=== PATIENT | male | born 1965 | race Caucasian/White ===

== ENCOUNTER 2024-08-03 06:17 | Day surgery (SDC) | payer BC, SELFPAY | END 2024-08-03 09:23 | disposition home or self-care (01) | LOC: GI 06:17 | PROVIDERS: ATTENDING PHYSICIAN Internal Medicine | DX: Z12.11 Encounter for screening for malignant neoplasm of colon (principal); K57.30 Diverticulosis of large intestine without perforation or abscess without bleeding; K64.8 Other hemorrhoids; Z83.719 Family history of colon polyps, unspecified | CPT/HCPCS: G0105 ==

== ENCOUNTER → 2024-08-09 17:04 | Outpatient (REF) | payer BC, SELFPAY | LOC: RAD 17:04 | PROVIDERS: ATTENDING PHYSICIAN Internal Medicine; FAMILY PHYSICIAN Family Medicine | DX: R93.3 Abnormal findings on diagnostic imaging of other parts of digestive tract (principal); D37.3 Neoplasm of uncertain behavior of appendix | CPT/HCPCS: 74177; Q9967 ==

== ENCOUNTER 2024-09-02 06:23 | Day surgery (SDC) | payer BC, SELFPAY ==
[2024-08-26 11:25] LABS: Hematocrit 43.4 % (39.0-52.0); Hemoglobin 14.5 g/dL (13.0-18.0); Mean Corp Hgb Conc. 33.4 g/dL (33.0-37.0); Mean Corpuscular Volume 89.9 fL (80.0-94.0); Platelet Count 232 10^3/uL (130-400); Red Blood Cell Count 4.83 10^6/uL (4.70-6.10); Red Cell Dist. Width 15.4 % (11.5-14.5); White Blood Cell Count 6.5 10^3/uL (4.8-10.8)
[2024-08-26 11:32] LABS: INR 0.98; PT 13.5 Sec (11.4-14.6)
[2024-08-26 11:33] LABS: APTT 31.9 Sec (23.4-35.0)
[2024-08-26 12:08] LABS: ALT (SGPT) 40 U/L (0-50); AST (SGOT) 35 U/L (17-59); Albumin 4.4 g/dl (3.5-5.0); Alkaline Phosphatase 58 U/L (38-126); Blood Urea Nitrogen 14 mg/dl (9-20); Calcium 9.7 mg/dl (8.4-10.2); Carbon Dioxide 28 mmol/L (22-30); Chloride 102 mmol/L (98-107); Glucose 91 mg/dl (70-99); Potassium 4.8 mmol/L (3.5-5.1); Sodium 140 mmol/L (135-145); Total Bilirubin 0.7 mg/dl (0.2-1.3); Total Protein 7.4 g/dl (6.3-8.2); eGFR > 60.00
[2024-08-26 13:40] VITALS: BMI 24.4
[2024-09-02] VITALS (9 sets, daily range): BP systolic 110–178; BP diastolic 60–101; BMI 24.4
[2024-09-02] MEDS: NORMOSOL-R/PLASMALYTE-A 1000 IV (08:45)
[2024-09-02] MEDS: LYRICA 150 MG PO (09:04)
[2024-09-02] MEDS: ENTEREG 12 MG PO (09:04)
[2024-09-02] MEDS: CELEBREX 200 MG PO (09:04)
[2024-09-02] MEDS: HEPARIN 5000 UNITS SC (09:05)
[2024-09-02] MEDS: TYLENOL 1000 MG PO (09:07)
--- NOTE | 2024-09-02 11:52 | W.IMMPOSTOP ---
Addendum entered and electronically signed by Cayden Zee MD 09/02/24 12:23:
updated fiance
Original Note:
Surgical Immed Post Op Note
-
Primary Surgeon: Cayden Zee MD
Assisting Surgeon: JAMES Hammond
Pre-op Diagnosis: Appendiceal mass
Post-op Diagnosis: Appendiceal mass
Procedure Performed: Robotic appendectomy with partial cecectomy, laparoscopic TAP block
Anesthesia Type: General
Specimen / Cultures: Appendix with partial cecum
Estimated Blood Loss: 15 mL
IVF: 1.0 L
UOP: 200 mL
Complications: None
Operative Findings: Appendix and retrocecal position and had to mobilize the cecum up to the mid ascending colon; thickening at the proximal appendix noted but no obvious mass or inflammation; divided appendix at the base with a loop of cecum, clear
from the terminal ileum
--- NOTE | 2024-09-02 11:54 | OR.RPT ---
Operative Report
Operative Report
DATE OF OPERATION: 09/02/2024
SURGEON: Cayden Zee MD
PREOPERATIVE DIAGNOSIS: Appendiceal mass
POSTOPERATIVE DIAGNOSIS: Appendiceal mass
OPERATION: Robotic appendectomy with partial cecectomy, adhesiolysis greater than 10 minutes, laparoscopic TAP block
ASSISTANTS:
1. JAMES Amos
ANESTHESIA: General
ESTIMATED BLOOD LOSS: 15 mL
IVF: 1.0 L
URINE OUTPUT: 200 mL
FINDINGS:
1. Appendix in retrocecal position, mobilized cecum up to mid ascending colon
2. Thickening of the appendix noted in the proximal appendix, but did not appear to involve the base; no obvious mass or inflammation
SPECIMENS:
1. Appendix with partial cecum
DRAINS: None
COMPLICATIONS: No immediate complications.
INDICATIONS: The patient is a 58-year-old male who presented to my office after a screening colonoscopy demonstrated a protrusion at the appendiceal orifice as well as mucin emanating from it, concerning for a mucinous mass. A subsequent CTAP
showed thickening of the appendix at the midportion of the appendix up to 9 mm. Therefore, I recommended appendectomy for pathologic review and diagnosis. The operation was discussed with the patient in detail, including the risks, benefits and
alternatives. Risks described included, but not limited to, bleeding, infection, damage to nearby structures (i.e., bowel, bladder, epigastric vessels), need for small bowel resection, pathologically normal appendix, positive margins, need for
subsequent surgery, conversion to open, and anesthetic risks. The patient understood and agreed to proceed. The consent was signed and placed in the chart.
PROCEDURE IN DETAIL: The patient was taken to the operating room and placed on the operating table in supine position. Sequential compression devices were placed bilaterally. General anesthesia was induced and the patient was intubated without
complication. Bilateral arms were tucked. St catheter was placed with sterile technique. Preoperative antibiotics were given. The abdomen was shaved, prepped and draped in a sterile fashion. A marking pen was used to mary out the midline. A
time-out was performed verifying the correct patient, procedure, operative site, positioning, and special equipment.
At Elmer's point, using an 11 blade scalpel, an 8 mm incision was made. A Veress needle was used to obtain abdominal access. After 3 clicks, insufflation was initiated and the opening pressure was noted to be less than 8 mmHg. The abdomen was
insufflated to a pressure of 12, which the patient tolerated well. The 8 mm robotic trocar was introduced and the robotic endoscope advanced. No injury from initial Veress placement or port placement was noted. The abdomen was explored. There
were no concerning peritoneal lesions or superficial lesions on the liver.
In a diagonal fashion from the planned suprapubic port site (along the midline, 2 finger breadths above the pubic symphysis) to the Fallon's point incision, three more robotic trocars were placed under direct visualization, taking care to avoid
injury to the epigastric vessels and bladder. Using atraumatic graspers, the omentum was brushed cephalad. The patient was placed in [id number] with slight Trendelenburg. The robot was docked from the patient's right side. From the
suprapubic to Fallon's point, the instruments introduced were the bipolar grasper, camera, scissors and tip-up grasper.
To begin, I grasped and elevated the cecum. However, this was hindered due to the RLQ adhesions. Therefore, I performed adhesiolysis to free up the cecum and terminal ileum. I swept the small bowel away from the right lower quadrant. The
appendix was in a retrocecal position. I mobilized the cecum and terminal ileum from a lateral to medial approach, taking care to avoid injury to retroperitoneal structures. I carried this mobilization up to the mid ascending colon until I
visualized the tip of the appendix. I meticulously freed the appendix from its attachments to the inferior aspect of the ascending colon. I easily identified the cecum, appendix and terminal ileum. I lysed adhesions between the appendix and the
ligament of Treitz. While retracting the appendix superiorly, I divided the mesoappendix with the vessel sealer to the base of the appendix. The area was now free from adhesions and well exposed. Using the tip up grasper, I estimated my planned
staple line, and there was a clear margin of cecum without involvement of the terminal ileum. The left upper quadrant port was upsized to a 12 mm port. I stapled and divided the appendix with a several millimeter margin of cecum. The specimen was
placed in an endoscopic retrieval bag and removed from the suprapubic incision.
The right lower quadrant was suctioned. There was no bleeding noted from the staple line or from the divided mesentery. The robot was undocked. The left upper quadrant port was removed and the fascia was closed with an 0-Vicryl stitch using a
suture passer. A laparoscopic TAP block was performed, injecting a total of 30mL of 0.25% Marcaine with epinephrine mixed with 0.3mg of dexamethasone were injected bilaterally in the transversus abdominis plane. The right lower quadrant was
evaluated once more and hemostasis was confirmed. The remaining ports were removed under direct visualization, no bleeding was noted. The abdomen was allowed to collapse. The skin of the ports were closed with 4-0 Monocryl in subcuticular fashion.
The incisions were injected with an additional of 30 mL of 0.25% Marcaine with epinephrine and 0.3 mg of dexamethasone. Dermabond was used for dressing.
At this point, the procedure was complete. The patient was awoken and extubated without complication. The st was removed. All needle, sponge and instrument counts were reported as correct. The patient tolerated the procedure well and was
transferred to the recovery room in stable condition.
Of note, JAMES Amos, sourcing assistant, was necessary during this procedure for traction, countertraction, and exploratory purposes. I was present for the entire duration of the case.
DICTATED BY: Cayden Zee MD
[2024-09-02] MEDS: DILAUDID 0.25 MG IV (12:55)
--- NOTE | 2024-09-02 13:40 | SUR.PHASEI ---
patient slow to awaken and 40+ minutes in pacu before airway could be removed. Now remains sleepy, but c/o of abd pain - medicated with dilaudid 0.25mg - appears to sleep after med, but states little change in discomfort. Dr Zee visits x2,
Patient agrees with discharge to [facility] try to eat and drink and take oral med for pain.
[2024-09-02] MEDS: ROXICODONE 5 MG PO (13:42)
== END 2024-09-02 13:30 | disposition home or self-care (01) ==
LOC: SDS 06:23
PROVIDERS: ATTENDING PHYSICIAN Surgery; FAMILY PHYSICIAN Family Medicine
DX: K38.8 Other specified diseases of appendix (principal); R19.09 Other intra-abdominal and pelvic swelling, mass and lump; K66.0 Peritoneal adhesions (postprocedural) (postinfection)
CPT/HCPCS: 44970; 88307; 36415; 71046; 80053; 85027; 85610; 85730; 86850; 86900; 86901; 93005